=== PATIENT | male | born 1935 | race Caucasian/White ===

== ENCOUNTER 2021-05-17 08:13 | Outpatient (CLI) | payer OTHER, MEDICARE, BC | END 2021-05-17 08:14 | disposition home or self-care (01) | LOC: CSHWCC 08:13 | PROVIDERS: ATTEND Nurse Practitioner Family | DX: L89.153 Pressure ulcer of sacral region, stage 3 (principal); E03.9 Hypothyroidism, unspecified; E11.622 Type 2 diabetes mellitus with other skin ulcer; L98.499 Non-pressure chronic ulcer of skin of other sites with unspecified severity; E46 Unspecified protein-calorie malnutrition; E78.2 Mixed hyperlipidemia; G40.209 Localization-related (focal) (partial) symptomatic epilepsy and epileptic syndromes with complex partial seizures, not intractable, without status epilepticus; I25.10 Atherosclerotic heart disease of native coronary artery without angina pectoris; L05.91 Pilonidal cyst without abscess; W01.198D Fall on same level from slipping, tripping and stumbling with subsequent striking against other object, subsequent encounter; Z74.01 Bed confinement status; Z91.81 History of falling | CPT/HCPCS: 97139; G0463; 99212 ==

== ENCOUNTER 2021-06-11 11:54 | Outpatient (CLI) | payer OTHER, MEDICARE, BC | END 2021-06-11 11:55 | disposition home or self-care (01) | LOC: CSHWCC 11:54 | PROVIDERS: ATTEND Nurse Practitioner Family | DX: L89.153 Pressure ulcer of sacral region, stage 3 (principal); E11.622 Type 2 diabetes mellitus with other skin ulcer; L98.499 Non-pressure chronic ulcer of skin of other sites with unspecified severity; L05.91 Pilonidal cyst without abscess; I25.10 Atherosclerotic heart disease of native coronary artery without angina pectoris; G40.209 Localization-related (focal) (partial) symptomatic epilepsy and epileptic syndromes with complex partial seizures, not intractable, without status epilepticus; E03.9 Hypothyroidism, unspecified; E46 Unspecified protein-calorie malnutrition; E78.2 Mixed hyperlipidemia; W01.198S Fall on same level from slipping, tripping and stumbling with subsequent striking against other object, sequela; Z74.01 Bed confinement status; Z91.81 History of falling | CPT/HCPCS: 99213; G0463 ==

== ENCOUNTER 2021-07-04 13:15 | Outpatient (CLI) | payer MEDICARE, BC | END 2021-07-04 13:16 | disposition home or self-care (01) | LOC: CSHWCC 13:15 | PROVIDERS: ATTEND Nurse Practitioner Family | DX: L89.153 Pressure ulcer of sacral region, stage 3 (principal); E11.622 Type 2 diabetes mellitus with other skin ulcer; E46 Unspecified protein-calorie malnutrition; E78.2 Mixed hyperlipidemia; G40.209 Localization-related (focal) (partial) symptomatic epilepsy and epileptic syndromes with complex partial seizures, not intractable, without status epilepticus; I25.10 Atherosclerotic heart disease of native coronary artery without angina pectoris; E03.9 Hypothyroidism, unspecified; L05.91 Pilonidal cyst without abscess; W01.198D Fall on same level from slipping, tripping and stumbling with subsequent striking against other object, subsequent encounter; Z74.01 Bed confinement status; Z91.81 History of falling ==

== ENCOUNTER 2021-08-01 14:48 | Outpatient (CLI) | payer MEDICARE, BC | END 2021-08-01 14:49 | disposition home or self-care (01) | LOC: CSHWCC 14:48 | PROVIDERS: ATTEND Nurse Practitioner Family | DX: L89.153 Pressure ulcer of sacral region, stage 3 (principal); E11.622 Type 2 diabetes mellitus with other skin ulcer; L05.91 Pilonidal cyst without abscess; E03.9 Hypothyroidism, unspecified; E46 Unspecified protein-calorie malnutrition; E78.2 Mixed hyperlipidemia; G40.209 Localization-related (focal) (partial) symptomatic epilepsy and epileptic syndromes with complex partial seizures, not intractable, without status epilepticus; I25.10 Atherosclerotic heart disease of native coronary artery without angina pectoris; W01.198D Fall on same level from slipping, tripping and stumbling with subsequent striking against other object, subsequent encounter; Z74.01 Bed confinement status; Z91.81 History of falling ==